=== PATIENT | female | born 1995 | race African-American/Black ===

== ENCOUNTER 2022-04-28 00:47 | Emergency (ER) | payer OTHER ==
[2022-04-28 01:14] VITALS: BP 147/99; PULSE 116; RESP 19; TEMP 98
--- NOTE | 2022-04-28 01:34 | XR ---
EXAMINATION TYPE: XR chest 2V DATE OF EXAM: 04/28/2022 COMPARISON: NONE HISTORY: Chest TECHNIQUE: 2 view FINDINGS: Heart and mediastinum are normal. Lungs are clear. Diaphragm is normal. Bony thorax appears normal. IMPRESSION: Normal chest.
[2022-04-28 01:44] LABS: HGB 13.6 gm/dL (11.4-16.0); MCH 22.5 pg (25.0-35.0); MCV 72.6 fL (80.0-100.0); Mean Platelet Volume 7.6; Microcytosis Slight; Platelet Count 231 k/uL (150-450); RBC 6.05 m/uL (3.80-5.40); RDW 13.1 % (11.5-15.5); WBC 4.7 k/uL (3.8-10.6)
[2022-04-28 01:59] LABS: Prothrombin Time 10.8 sec (9.0-12.0)
[2022-04-28 02:12] LABS: ALT 53 U/L (4-34); AST 39 U/L (14-36); African American GFR (CKD) >90 (>60 ml/min/1.73 sqM); Alkaline Phosphatase 107 U/L (38-126); Anion Gap 9 mmol/L; Blood Urea Nitrogen 13 mg/dL (7-17); Calcium 9.5 mg/dL (8.4-10.2); Carbon Dioxide 25 mmol/L (22-30); Chloride 105 mmol/L (98-107); Glucose 105 mg/dL (74-99); Magnesium 1.8 mg/dL (1.6-2.3); Non-African American GFR(CKD) >90 (>60 ml/min/1.73 sqM); Sodium 139 mmol/L (137-145); Total Bilirubin 0.2 mg/dL (0.2-1.3); Total Protein 7.1 g/dL (6.3-8.2)
[2022-04-28 02:28] LABS: Band Neutrophils % 1 %; Eosinophils # (M) 0.09 k/uL (0-0.7); Lymphocytes # (M) 1.97 k/uL (1.0-4.8); Monocytes # (M) 0.33 k/uL (0-1.0); Neutrophils % (M) 48 %; Nucleated Red Blood Cells 0 /100 WBC (0-0); Total Cells Counted 100
--- NOTE | 2022-04-28 03:52 | ED ---
Chest Pain HPI - General Chief Complaint: Chest Pain Stated Complaint: Chest Pain Time Seen by Provider: 04/28/22 02:35 Source: patient, RN notes reviewed Mode of arrival: ambulatory - History of Present Illness Initial Comments: This is a pleasant 26-year-old female presents the emergency department complaining of palpitations, chest pains, [id number] symptoms. Patient complaining of body aches and a fever of up to 101F which is had about one week. Patient here traveling from [place]. Patient states that some of the symptoms such as chest pain, palpitations and joint aching she has had for quite some time. She is seen her regular physician in [place] and is being worked up for autoimmune disease. Patient has a history of polymyositis in her family. Patient states she has to take a COVID-19 test on nearly daily basis for work. However these are Quick test. Patient has not had a PCR test since she has been here in [place]. Patient states that at times her heart rate has reached up to 160 bpm. Again this been going on for quite some time the patient is already been worked up for this. Patient is chronically tachycardic. Patient states that her physician has checked her thyroid recently and was completely normal. Patient denying any vaginal discharge. Denies chance of . Denies any irritative voiding. No headache, no changes in vision or hearing, no sore throat or difficulty with speech, no neck pain, no shortness of breath, no abdominal pain, no nausea or vomiting, no changes in urination or bowel movements, no numbness or tingling, GENERAL myalgias and arthralgias, no skin rashes or lesions. Past medical, surgical, social, and family history reviewed. - Related Data Allergies Allergy/AdvReac Type Severity Reaction Status Date / Time No Known Allergies Allergy Verified 04/28/22 01:14 Review of Systems ROS Statement: Those systems with pertinent positive or pertinent negative responses have been documented in the HPI. ROS Other: All systems not noted in ROS Statement are negative. EKG Findings - EKG Comments: EKG Findings:: EKG shows sinus tachycardia with a rate of 120 area normal axis. No acute ST or T-wave changes. Normal QRS morphology. Normal intervals. No comparison study Past Medical History Additional Past Medical History / Comment(s): tremor History of Any Multi-Drug Resistant Organisms: None Reported Past Surgical History: No Surgical Hx Reported Past Psychological History: No Psychological Hx Reported Smoking Status: Never smoker Past Alcohol Use History: None Reported Past Drug Use History: None Reported General Exam - General Exam Comments Initial Comments: Patient does not appear to be ill or toxic. Patient noted to be tachycardic. Remainder of the vital signs are essentially stable. In fact, patient is somewhat hypertensive with a systolic blood pressure 149. Cranial nerves II through XII are intact General appearance: alert, in no apparent distress Head exam: Present: atraumatic, normocephalic, normal inspection Eye exam: Present: normal appearance, PERRL, EOMI. Absent: scleral icterus, conjunctival injection, periorbital swelling ENT exam: Present: normal exam, normal oropharynx, mucous membranes moist, normal external ear exam. Absent: mucous membranes dry Neck exam: Present: normal inspection, full ROM. Absent: tenderness, meningismus, lymphadenopathy Respiratory exam: Present: normal lung sounds bilaterally. Absent: respiratory distress, wheezes, rales, rhonchi, stridor, chest wall tenderness, accessory muscle use, decreased breath sounds, prolonged expiratory Cardiovascular Exam: Present: normal rhythm, tachycardia, normal heart sounds. Absent: regular rate, systolic murmur, diastolic murmur, rubs, gallop, clicks GI/Abdominal exam: Present: soft, normal bowel sounds. Absent: distended, tenderness, guarding, rebound, rigid Extremities exam: Present: normal inspection, full ROM, normal capillary refill. Absent: tenderness, pedal edema, joint swelling, calf tenderness Back exam: Present: normal inspection Neurological exam: Present: alert, oriented X3, CN II-XII intact Psychiatric exam: Present: normal affect, normal mood Skin exam: Present: warm, dry, intact, normal color. Absent: rash, cyanosis, diaphoretic, erythema, urticaria, vesicles, petechiae, pallor, mottled, abrasion Course Vital Signs 04/28/22 01:09 Temperature 98 F Pulse Rate 116 H Respiratory 19 Rate Blood Pressure 147/99 O2 Sat by Pulse 99 Oximetry Chest Pain [facility] - [facility] Patient presents with symptomology which she essentially sent going on for quite some time. Tachycardia, arthralgias, myalgias, patient currently being worked up for autoimmune disease in [place]. Patient has had thyroid testing, has had initial testing done. Patient states that her heart rate has been running high for several weeks to months. Patient has a physician in [place]. Patient states she has had intermittent fevers. Patient's workup here essentially negative. Negative troponin, EKG shows sinus tachycardia, negative d-dimer. All findings discussed with the patient. All questions answered. Patient told to follow-up with her regular physician as soon as possible. Patient likely needs further evaluation with regard to possible autoimmune diseases. The case was discussed in detail with ED attending physician. Presentation, findings, treatment plan discussed in detail. Patient was told to return to the ER for any signs or symptoms worsen. Told to return immediately if any other problems arise. All questions answered. Treatment plan discussed. Patient in agreement Every effort has been made to ensure accuracy of this dictation. However, due to the limitations of electronic medical records and dictation devices, errors in charting still occur. [employer] [employer] Dr. Garnica Disposition Clinical Impression: Viral syndrome, Myalgia, Chronic tachycardia Disposition: HOME SELF-CARE Condition: Stable Instructions (If sedation given, give patient instructions): Viral Syndrome (ED), Tachycardia (ED) Additional Instructions: Follow-up with the regular physician as soon as possible. Return to the ER immediately if any symptoms worsen, new symptoms arise, or any other problems develop. Is patient prescribed a controlled substance at d/c from ED?: No Referrals: Nonstaff,Physician [Primary Care Provider] - 1-2 days Time of Disposition: 03:55
== END 2022-04-28 04:16 | disposition home or self-care (01) ==
LOC: EC 00:47
DX: R00.0 Tachycardia, unspecified (principal); M79.10 Myalgia, unspecified site; B34.9 Viral infection, unspecified; Z20.822 Contact with and (suspected) exposure to COVID-19
CPT/HCPCS: 36415; 71046; 80053; 81025; 83735; 84484; 85025; 85379; 85610; 85730; 87635; 93005; 99285